=== PATIENT | female | born 1945 | race Caucasian/White ===

== ENCOUNTER 2018-09-12 11:50 | Emergency (ER) | payer MEDICARE ==
[~2018-09-12] VITALS: Ht 157.5 cm; Wt 80.0 kg
[2018-09-12] MEDS ORDERED: NIFEDIPINE60 MG PO (12:08)
[2018-09-12] MEDS ORDERED: MAXZIDE-2537.5 MG/TA PO (12:08)
[2018-09-12] MEDS ORDERED: LEVOTHYROXIN150 MCG PO (12:09)
[2018-09-12 12:39] LABS: HEMATOCRIT 43.4 % (37.0-47.0); HEMOGLOBIN 14.4 g/dl (12.0-16.0); IMMATURE GRANULOCYTES 0.3 % (0.0-5.0); MEAN CELL VOLUME 93.3 fL CALC (80.0-100.0); MEAN CORPUSCULAR HGB CONC 33.2 g/L CALC (32.0-36.0); NEUT# 4.62 thou/uL (2.00-7.15); RED BLOOD COUNT 4.65 mill/uL (4.20-5.60); RED CELL DISTRI WIDTH 12.6 % (11.5-15.5)
[2018-09-12 13:28] LABS: ALBUMIN 4.8 g/dL (3.2-5.0); ALKALINE PHOSPHATASE 81 u/l (38-126); ANION GAP 16 (6-22 (CALC)); BILIRUBIN, TOTAL 0.5 mg/dL (0.0-1.4); BUN 10 mg/dL (8-23); BUN/CREATININE RATIO 17 (12-20 (CALC)); CARBON DIOXIDE 27 mmol/l (22-30); CHLORIDE 97 mmol/l (95-108); CREATININE 0.6 mg/dL (0.5-1.0); GFR > 60 ML/MIN (>=60 (CALC)); GFR FOR AFR.AMER. > 60 ML/MIN (>=60 (CALC)); POTASSIUM 3.7 mmol/l (3.5-5.1); SGOT/AST 26 u/l (9-36); SODIUM 136 mmol/l (137-146); TOTAL PROTEIN 8.1 g/dL (6.3-8.2)
[2018-09-12 13:41] LABS: URINE BILIRUBIN - DIPSTICK NEGATIVE (NEGATIVE); URINE BLOOD DIPSTICK NEGATIVE (NEGATIVE); URINE COLOR YELLOW; URINE GLUCOSE - DIPSTICK NEGATIVE (NEGATIVE); URINE KETONE NEGATIVE (NEGATIVE); URINE LEUK ESTERASE NEGATIVE (NEGATIVE); URINE NITRITE - DIPSTICK NEGATIVE (Negative); URINE PH 7.5 (4.5-8.0); URINE PROTEIN - DIPSTICK NEGATIVE (NEG-TRACE); URINE UROBILINOGEN - DIPSTICK 0.2 E.U./dL (0.2)
[2018-09-12 14:10] VITALS: BP 127/70
== END 2018-09-12 14:16 | disposition home or self-care (01) ==
LOC: ED 11:50
DX: I10 Essential (primary) hypertension (principal); T46.5X6A Underdosing of other antihypertensive drugs, initial encounter; Z91.128 Patient's intentional underdosing of medication regimen for other reason

== ENCOUNTER 2019-08-08 00:07 | Emergency (ER) | payer MEDICARE ==
[~2019-08-08] VITALS: Ht 157.5 cm; Wt 73.0 kg
[~2019-08-08 00:07] MED LIST: LEVOTHYROXIN150 MCG PO; MAXZIDE-2537.5 MG/TA PO; NIFEDIPINE60 MG PO
[2019-08-08] MEDS ORDERED: LOSARTAN POTAS100 MG PO (00:33)
[2019-08-08 02:08] VITALS: BP 172/82
== END 2019-08-08 02:08 | disposition home or self-care (01) ==
LOC: ED 00:07
DX: I10 Essential (primary) hypertension (principal)